=== PATIENT | female | born 1990 | race Caucasian/White ===

== ENCOUNTER 2019-09-25 18:21 | Emergency (ER) | payer OTHER ==
[2019-09-25] MEDS ORDERED: Zofran 4 MG/2 ML VIAL IV ONE (20:37)
[2019-09-25] MEDS ORDERED: Sodium Chloride 0.9% 1000 ML 1,000 ML IV STA (20:37)
[2019-09-25 20:44] LABS: INFLUENZA A NEGATIVE (NEGATIVE); INFLUENZA B NEGATIVE (NEGATIVE); RESPIRATORY SYNCTIAL VIRUS NEGATIVE (Negative)
[2019-09-25 20:47] LABS: Absolute Neutrophil Ct (ANC) 6.56 (1.4-6.9); BASOPHIL % 0.2 % (0.0-0.4); Basophil (Absolute #) 0.02 (0-0.4); Eosinophil % 0.4 % (0.00-5.0); Eosinophil (Absolute #) 0.04 (0-0.5); Hematocrit 38.3 % (35-47); Hemoglobin 13.1 gm/dl (12.0-16.0); Lymphocyte (Absolute #) 1.92 (1.0-4.6); Lymphocytes % 21.1 % (24.0-44.0); Mean Cell Volume 87.4 fl (78-100); Mean Corpuscular Hemoglobin 29.9 pg (26-32); Mean Corpuscular Hgb Concent. 34.2 g/dl (32-36); Mean Platelet Volume 10.2 fl (7.5-11.0); Monocyte (Absolute #) 0.55 (0.0-1.3); Monocytes % 6.1 % (0.0-12.0); Neutrophil % 72.2 % (36.0-66.0); Platelet Count 303 K/mm3 (150-450); Red Blood Count 4.38 M/mm3 (4.1-5.4); Red Cell Distribution Width 13.2 % (11.5-14.0); White Blood Count 9.1 K/mm3 (4.0-10.5)
[2019-09-25 20:52] LABS: ALBUMIN 4.4 g/dL (3.5-5.0); ALKALINE PHOSPHATASE 76 U/L (38-126); BLOOD UREA NITROGEN 7 mg/dL (7-17); CHLORIDE 102 mmol/L (98-107); Calcium 9.8 mg/dL (8.4-10.2); Carbon Dioxide 25 mmol/L (22-30); Creatinine 1 0.53 mg/dL (0.52-1.04); Glucose 99 mg/dL (74-106); LIPASE 126 U/L (23-300); Potassium 3.7 mmol/L (3.5-5.1); SGOT/AST 22 U/L (14-36); SGPT/ALT 19 U/L (0-35); SODIUM 138 mmol/L (137-145); Total Protein 8.2 g/dL (6.3-8.2)
[2019-09-25] MEDS ORDERED: Sodium Chloride 0.9% 1000 ML 1,000 ML ONE (21:02)
[2019-09-25] MEDS ORDERED: Zofran 4 MG/2 ML VIAL ONE (21:02)
[2019-09-25 21:36] LABS: Appearance SLIGHTLY CLOUDY (CLEAR); Bilirubin NEGATIVE (NEGATIVE); Blood NEGATIVE Ery/ul (0-5); Epithelial Cells RARE /HPF (FEW); Glucose NEGATIVE (NEGATIVE); Ketones SMALL (NEGATIVE); Leukocyte Esterase NEGATIVE (NEGATIVE); Mucus SLIGHT /HPF (NEGATIVE); Nitrite NEGATIVE (NEGATIVE); Protein,Urine Dip 30 (Negative); Specific Gravity 1.027 (1.005-1.025); Urobilinogen 4 mg/dL (0-1)
[2019-09-25] MEDS ORDERED: Phenergan 25 MG INJ IV ONE (21:50)
--- NOTE | 2019-09-25 21:50 | ERPHSYRPT ---
- History of Present Illness Time Seen by Provider: 09/25/19 19:43 Source: patient Patient Subjective Stated Complaint: pt states, "I'm 12 weeks and have been sick since 5 weeks . At 6 weeks, I started taking zofran, but I cannot keep anything down the last couple days". Triage Nursing Assessment: pt c/o nausea and vomiting x7 weeks of , is taking zofran but the last 2 days unable to keep anything down, food or fluids. The nausea and vomiting has gotten worse the last 2 days. Fever 99.6 today. Physician History: 29 yyears old 3 para 1 at 12 weeks gestation presented in the ER with chief complaint worsening hyperemesis gravidarum. Patient reports for the last 6 weeks he is not been able to hold much down and for the last couple of days it 's been worse than usual. Usually she has 3-4 episodes of vomiting every day but today alone she has 5 or 6. She denies any abdominal pain, vaginal bleeding or discharge. Denies any hematemesis. Vomiting is triggered by oral intake and stays nauseated off her words. She has been taking Zofran with not much relief. She feels fatigued and tired. Timing/Duration: week(s), intermittent, worse Activites at Onset: rest Allergies/Adverse Reactions: No Known Drug Allergies Allergy (Unverified 06/23/16 20:25) Home Medications: Ondansetron HCl [Zofran] 4 mg PO Q6H PRN PRN 09/25/19 [History] Hx Tetanus, Diphtheria Vaccination/Date Given: Yes Hx Influenza Vaccination/Date Given: No Hx Pneumococcal Vaccination/Date Given: No - Review of Systems Constitutional: Fatigue Eyes: No Symptoms Ears, Nose, & Throat: No Symptoms Respiratory: No Symptoms Cardiac: No Symptoms Abdominal/Gastrointestinal: Nausea, Vomiting Genitourinary Symptoms: No Symptoms Musculoskeletal: No Symptoms Neurological: No Symptoms Psychological: No Symptoms Endocrine: No Symptoms Hematologic/Lymphatic: No Symptoms - Past Medical History Pertinent Past Medical History: Yes Neurological History: No Pertinent History ENT History: No Pertinent History Cardiac History: No Pertinent History Respiratory History: No Pertinent History Endocrine Medical History: Hypothyroidism Musculoskeletal History: No Pertinent History GI Medical History: Colitis, Irritable Bowel History: No Pertinent History Psycho-Social History: Anxiety, Depression, Panic Disorder Female Reproductive Disorders: Other Other Medical History: pcos, miscarriage 2013 - Past Surgical History Past Surgical History: Yes Neuro Surgical History: No Pertinent History Cardiac: No Pertinent History Respiratory: No Pertinent History Gastrointestinal: No Pertinent History Genitourinary: No Pertinent History Musculoskeletal: No Pertinent History Female Surgical History: Dilation & Curettage, Section - Social History Smoking Status: Never smoker Exposure to second hand smoke: No Drug Use: none Patient Lives Alone: No - Female History Hx Now: Yes Expected Date of Delivery: 04/06/20 - Nursing Vital Signs Nursing Vital Signs: Initial Vital Signs Temperature 99.6 F 09/25/19 19:22 Pulse Rate 110 H 09/25/19 19:22 Respiratory Rate 09/25/19 19:22 Blood Pressure 127/74 09/25/19 19:22 O2 Sat by Pulse Oximetry 100 09/25/19 19:22 Pain Scale Pain Intensity 0 - Physical Exam General Appearance: no apparent distress Eye Exam: eyes nml inspection Ears, Nose, Throat Exam: normal ENT inspection, TMs normal Neck Exam: normal inspection, non-tender, supple Respiratory Exam: normal breath sounds, lungs clear Cardiovascular Exam: regular rate/rhythm, normal heart sounds, normal peripheral pulses Gastrointestinal/Abdomen Exam: soft, normal bowel sounds, No tenderness, No distention Back Exam: normal inspection Extremity Exam: normal inspection, normal range of motion Neurologic Exam: alert, oriented x 3, cooperative, 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 Skin Exam: normal color SpO2 Interpretation: normal SpO2: 99 O2 Delivery: Room Air - Course Nursing assessment & vital signs reviewed: Yes Ordered Tests: Active Orders 24 hr Category Date Time Status IV Insertion STAT Care 09/25/19 20:37 Active CBC W DIFF Stat Lab 09/25/19 20:10 Completed CMP Stat Lab 09/25/19 20:10 Completed LIPASE Stat Lab 09/25/19 20:10 Completed UA W/RFX UR CULTURE Stat Lab 09/25/19 21:29 Completed Medication Summary Discontinued Medications Generic Name Dose Route Start Last Admin Trade Name Freq PRN Reason Stop Dose Admin Sodium Chloride 1,000 mls @ 999 mls/hr 09/25/19 20:37 09/25/19 21:05 Sodium Chloride 0.9% 1000 Ml IV 09/25/19 21:37 999 mls/hr .Q1H1M STA Administration Sodium Chloride Confirm 01/24/20 21:02 Sodium Chloride 0.9% 1000 Ml Administered 09/25/19 21:03 Dose 1,000 mls @ ud .ROUTE .[facility] Ondansetron HCl 4 mg 09/25/19 20:37 09/25/19 21:05 Zofran 4 Mg/2 Ml Vial IV 09/25/19 20:38 4 mg STAT ONE Administration Ondansetron HCl Confirm 09/25/19 21:02 Zofran 4 Mg/2 Ml Vial Administered 09/25/19 21:03 Dose 4 mg .ROUTE .[facility] Lab/Rad Data: Laboratory Result Diagrams 09/25/19 20:10 09/25/19 20:10 Laboratory Results 09/25/19 09/25/19 09/25/19 Range/Units 21:29 20:10 20:10 WBC 9.1 (4.0-10.5) K/mm3 RBC 4.38 (4.1-5.4) M/mm3 Hgb 13.1 (12.0-16.0) gm/dl Hct 38.3 (35-47) % MCV 87.4 (78-100) fl MCH 29.9 (26-32) pg MCHC 34.2 (32-36) g/dl RDW 13.2 (11.5-14.0) % Plt Count 303 (150-450) K/mm3 MPV 10.2 (7.5-11.0) fl Gran % 72.2 H (36.0-66.0) % Eos # (Auto) 0.04 (0-0.5) Absolute Lymphs (auto) 1.92 (1.0-4.6) Absolute Monos (auto) 0.55 (0.0-1.3) Lymphocytes % 21.1 L (24.0-44.0) % Monocytes % 6.1 (0.0-12.0) % Eosinophils % 0.4 (0.00-5.0) % Basophils % 0.2 (0.0-0.4) % Absolute Granulocytes 6.56 (1.4-6.9) Basophils # 0.02 (0-0.4) Sodium 138 (137-145) mmol/L Potassium 3.7 (3.5-5.1) mmol/L Chloride 102 (98-107) mmol/L Carbon Dioxide 25 (22-30) mmol/L Anion Gap 15.0 (5-15) MEQ/L BUN 7 (7-17) mg/dL Creatinine 0.53 (0.52-1.04) mg/dL Estimated GFR > 60.0 ML/MIN Glucose 99 (74-106) mg/dL Calcium 9.8 (8.4-10.2) mg/dL Total Bilirubin 0.40 (0.2-1.3) mg/dL AST 22 (14-36) U/L ALT 19 (0-35) U/L Alkaline Phosphatase 76 (38-126) U/L Serum Total Protein 8.2 (6.3-8.2) g/dL Albumin 4.4 (3.5-5.0) g/dL Lipase 126 (23-300) U/L Urine Color SERA (YELLOW) Urine Appearance SLIGHTLY CLOUDY (CLEAR) Urine pH 5.0 (5-6) Ur Specific [place] 1.027 (1.005-1.025) Urine Protein 30 (Negative) Urine Ketones SMALL (NEGATIVE) Urine Blood NEGATIVE (0-5) [place]/ul Urine Nitrite NEGATIVE (NEGATIVE) Urine Bilirubin NEGATIVE (NEGATIVE) Urine Urobilinogen 4 (0-1) mg/dL Ur Leukocyte Esterase NEGATIVE (NEGATIVE) Urine WBC (Auto) 3-5 (0-5) /HPF Urine RBC (Auto) NONE (0-2) /HPF U Epithel Cells (Auto) RARE (FEW) /HPF Urine Bacteria (Auto) NONE (NEGATIVE) /HPF Urine Mucus (Auto) SLIGHT (NEGATIVE) /HPF Urine Culture Reflexed NO (NO) Urine Glucose NEGATIVE (NEGATIVE) mg/dL Influenza Type A Ag (NEGATIVE) Influenza Type B Ag (NEGATIVE) RSV (PCR) (Negative) 09/25/19 Range/Units 20:07 WBC (4.0-10.5) K/mm3 RBC (4.1-5.4) M/mm3 Hgb (12.0-16.0) gm/dl Hct (35-47) % MCV (78-100) fl MCH (26-32) pg MCHC (32-36) g/dl RDW (11.5-14.0) % Plt Count (150-450) K/mm3 MPV (7.5-11.0) fl Gran % (36.0-66.0) % Eos # (Auto) (0-0.5) Absolute Lymphs (auto) (1.0-4.6) Absolute Monos (auto) (0.0-1.3) Lymphocytes % (24.0-44.0) % Monocytes % (0.0-12.0) % Eosinophils % (0.00-5.0) % Basophils % (0.0-0.4) % Absolute Granulocytes (1.4-6.9) Basophils # (0-0.4) Sodium (137-145) mmol/L Potassium (3.5-5.1) mmol/L Chloride (98-107) mmol/L Carbon Dioxide (22-30) mmol/L Anion Gap (5-15) MEQ/L BUN (7-17) mg/dL Creatinine (0.52-1.04) mg/dL Estimated GFR ML/MIN Glucose (74-106) mg/dL Calcium (8.4-10.2) mg/dL Total Bilirubin (0.2-1.3) mg/dL AST (14-36) U/L ALT (0-35) U/L Alkaline Phosphatase (38-126) U/L Serum Total Protein (6.3-8.2) g/dL Albumin (3.5-5.0) g/dL Lipase (23-300) U/L Urine Color (YELLOW) Urine Appearance (CLEAR) Urine pH (5-6) Ur Specific [place] (1.005-1.025) Urine Protein (Negative) Urine Ketones (NEGATIVE) Urine Blood (0-5) Kenyon/ul Urine Nitrite (NEGATIVE) Urine Bilirubin (NEGATIVE) Urine Urobilinogen (0-1) mg/dL Ur Leukocyte Esterase (NEGATIVE) Urine WBC (Auto) (0-5) /HPF Urine RBC (Auto) (0-2) /HPF U Epithel Cells (Auto) (FEW) /HPF Urine Bacteria (Auto) (NEGATIVE) /HPF Urine Mucus (Auto) (NEGATIVE) /HPF Urine Culture Reflexed (NO) Urine Glucose (NEGATIVE) mg/dL Influenza Type A Ag NEGATIVE (NEGATIVE) Influenza Type B Ag NEGATIVE (NEGATIVE) RSV (PCR) NEGATIVE (Negative) - Progress Progress: re-examined Air Movement: good Progress Note: sshe is given IV fluids and Zofran, and reevaluation feeling much better. No vomiting while in the ER. I will give her Phenergan prescription to take as needed. Recommended increase hydration and outpatient follow up with her OB. She does not have any abdominal pain//vaginal bleeding or discharge. Do not think needs any further workup is stable for discharge. 09/25/19 21:52 Blood Culture(s) Obtained: No Antibiotics given: No Counseled pt/family regarding: lab results, diagnosis, need for follow-up - Departure Departure Disposition: Home Clinical Impression: Hyperemesis affecting , antepartum Condition: Stable Critical Care Time: No Referrals: PRASHANT PENA MD [Primary Care Provider] - Instructions: Hyperemesis Gravidarum Additional Instructions: Drink plenty of fluids. Take Zofran/Phenergan as needed. Followup will be for evacuation of next week. Return to ER for worsening vomiting, dehydration, vaginal bleeding, abdominal pain etc.
[2019-09-25] MEDS ORDERED: Phenergan 25 MG INJ ONE (21:53)
[2019-09-25 22:07] VITALS: O2SAT 98
[2019-09-25 22:27] VITALS: BP 119/56; PULSE 91
== END 2019-09-25 22:28 | disposition home or self-care (01) ==
LOC: ED 18:21
DX: O21.0 Mild hyperemesis gravidarum (principal); Z3A.12 12 weeks gestation of pregnancy
CPT/HCPCS: 36000; 36415; 80053; 81001; 83690; 85025; 87631; 96374; 96375; 99284; J2405; J2550

== ENCOUNTER 2024-03-03 10:45 | Emergency (ER) | payer OTHER ==
[2024-03-03 10:58] VITALS: RESP 18; TEMP 97.1
--- NOTE | 2024-03-03 11:10 | ERPHSYRPT ---
- History of Present Illness Time Seen by Provider: 03/03/24 11:06 Source: patient, tube roller Physician History: 33-year-old female with a history of chronic back pain presents to our ED with acute exacerbation. Patient states the characteristics of her back pain are typical however the intensity is worse. Patient last had an imaging study when she was 19 years old. Patient was told that her C5 and C6 were unfused causing pain. Per the orthopedic surgeon at that time she was not a candidate for surgery. Pain described as an ache that tends to radiate down into her legs which is typical of her back pain exacerbation. No change in bowel bladder function. No saddle anesthesia. No fever no recent back procedure. No associated symptoms. Patient denies the possibility of . Patient states she had a tubal ligation and her is fixed. She does not have any urinary symptomology. Patient voices no other complaints or concerns at this time. Portions of this note were created with voice recognition technology. There may be grammatical, spelling, punctuation or sound alike errors Timing/Duration: today Method of Injury: twisted (Twisting in bed) Quality: dull, radiating (Radiates to both legs) Back Pain Location: lumbar spine Back Pain Radiation: lower legs Severity of Pain-Max: moderate Severity of Pain-Current: moderate Modifying Factors: Improves With: movement Associated Symptoms: denies symptoms Previous symptoms: same symptoms as today Allergies/Adverse Reactions: No Known Drug Allergies Allergy (Verified 03/03/24 10:58) Home Medications: Dextroamphetamine/Amphetamine [Dextroamp-Amphet ER 20 mg Cap] 1 ea DAILY 03/03/24 [History] Semaglutide [Ozempic] 1 mg SQ UD 03/03/24 [History] Spironolactone 25 mg [Aldactone 25 MG] 25 mg PO DAILY 03/03/24 [History] Hx Tetanus, Diphtheria Vaccination/Date Given: Yes Hx Influenza Vaccination/Date Given: No Hx Pneumococcal Vaccination/Date Given: No - Review of Systems Constitutional: No Symptoms, No Fever, No Chills Eyes: No Symptoms Ears, Nose, & Throat: No Symptoms Respiratory: No Symptoms, No Cough, No Dyspnea Cardiac: No Symptoms, No Chest Pain, No Edema, No Syncope Abdominal/Gastrointestinal: No Symptoms, No Abdominal Pain, No Nausea, No Vomiting, No Diarrhea Genitourinary Symptoms: No Symptoms, No Dysuria Musculoskeletal: No Symptoms, No Back Pain, No Neck Pain Skin: No Symptoms, No Rash Neurological: No Symptoms, No Dizziness, No Focal Weakness, No Sensory Changes Psychological: No Symptoms Endocrine: No Symptoms Hematologic/Lymphatic: No Symptoms Immunological/Allergic: No Symptoms All Other Systems: Reviewed and Negative - Past Medical History Pertinent Past Medical History: Yes Neurological History: No Pertinent History ENT History: No Pertinent History Cardiac History: No Pertinent History Respiratory History: No Pertinent History Endocrine Medical History: Hypothyroidism Musculoskeletal History: Other GI Medical History: Colitis, Irritable Bowel History: No Pertinent History Psycho-Social History: Anxiety, Depression, Panic Disorder Female Reproductive Disorders: Other Other Medical History: pcos, miscarriage 2014,chronic back pain - Past Surgical History Past Surgical History: Yes Neuro Surgical History: No Pertinent History Cardiac: No Pertinent History Respiratory: No Pertinent History Gastrointestinal: No Pertinent History Genitourinary: No Pertinent History Musculoskeletal: No Pertinent History Female Surgical History: Dilation & Curettage, Section - Female History Hx Now: No - Social History Smoking Status: Never smoker Exposure to second hand smoke: No Drug Use: none Patient Lives Alone: No - Nursing Vital Signs Nursing Vital Signs: Initial Vital Signs Temperature 97.1 F 03/03/24 10:57 Pulse Rate 70 03/03/24 10:57 Respiratory Rate 18 03/03/24 10:57 Blood Pressure 131/74 03/03/24 10:57 O2 Sat by Pulse Oximetry 98 03/03/24 10:57 Pain Scale Pain Intensity [Back] 5 Pain Intensity 5 - Physical Exam General Appearance: no apparent distress, alert Eye Exam: PERRL/EOMI, eyes nml inspection Neck Exam: normal inspection, non-tender, supple, full range of motion, No meningismus, No midline tenderness Respiratory Exam: normal breath sounds, lungs clear, airway intact, No respiratory distress Cardiovascular Exam: regular rate/rhythm, normal heart sounds, normal peripheral pulses Gastrointestinal Exam: soft, No tenderness, No mass Extremity Exam: normal inspection, normal range of motion, No calf tenderness, No pedal edema Neurologic Exam: alert, oriented x 3, cooperative, 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, normal mood/affect, nml station & gait, sensation nml, No motor deficits Skin Exam: normal color, warm, dry, No rash Lymphatic Exam: No adenopathy SpO2 Interpretation: normal SpO2: 98 O2 Delivery: Room Air - Course Nursing assessment & vital signs reviewed: Yes - CT Exams Lumbar Spine CT Interpretation: Tele-radiologist Report (Disc bulge some degenerative arthritis of the lumbar spine) Ordered Tests: Active Orders 24 hr Category Date Time Status LUMBAR SPINE W/O [CT] Stat Exams 03/03/24 11:05 Completed Medication Summary Discontinued Medications Generic Name Dose Route Start Last Admin Trade Name Anamaria PRN Reason Stop Dose Admin Dexamethasone Sodium Phosphate 10 mg 03/03/24 11:04 03/03/24 11:23 Dexamethasone Sod Phosphate 10 Mg/Ml IM 03/03/24 11:05 10 mg STAT ONE Administration Dexamethasone Sodium Phosphate Confirm 03/03/24 11:20 Dexamethasone Sod Phosphate 10 Mg/Ml Administered 03/03/24 11:21 Dose 10 mg .ROUTE .[facility] ONE Ketorolac Tromethamine 60 mg 03/03/24 11:04 03/03/24 11:23 Ketorolac Tromethamine 30 Mg/Ml Inj IM 03/03/24 11:05 60 mg STAT ONE Administration Ketorolac Tromethamine Confirm 03/03/24 11:20 Ketorolac Tromethamine 30 Mg/Ml Inj Administered 03/03/24 11:21 Dose 60 mg .ROUTE .STK-[facility] ONE - Progress Progress: improved Progress Note: 33-year-old female presents emergency department for evaluation of acute on chronic low back pain. Physical exam reveals some pain along the lumbar spine. Pain worse with movement and palpation pain improved with rest. CT scan reveals L4-S1 disc bulge. Some degeneration observed as well. Otherwise no acute findings no fracture dislocations. Patient received Toradol and Decadron. Pain improved. Patient states he is ready for discharge. Will discharge home. Patient agrees to follow-up with her primary care doctor within 48 hours for evaluation. Portions of this note were created with voice recognition technology. There may be grammatical, spelling, punctuation or sound alike errors Complexity problem addressed is moderate acute complicated. No critical care time. Complexity of data reviewed and analyzed is moderate. Test ordered test reviewed results analyzed and correlated clinically with history and physical examination. Risk of complication and or risk morbidity/mortality patient management is low. Vital stable. Time spent to discharge patient approximately 20 minutes. Plan of care established for shared decision making. No social determinants of health present impede follow-up. Portions of this note were created with voice recognition technology. There may be grammatical, spelling, punctuation or sound alike errors 03/03/24 12:04 Counseled pt/family regarding: diagnosis, need for follow-up, rad results - Departure Departure Disposition: Home Clinical Impression: Bulging disc, Lumbosacral strain, Back pain Condition: Stable Critical Care Time: No Referrals: DAVID BALDWIN PA [Primary Care Provider] - Follow up/PCP as directed Additional Instructions: Discharge/Care Plan JOSI PEDRO was seen on 03/03/24 in the Emergency Room. The patient was counseled regarding Diagnosis,Lab results, Imaging studies, need for follow up and when to return to the Emergency Room. Prescriptions given: Discharge Note I have spoken with the patient and/or caregivers. I have explained the patient's condition, diagnosis and treatment plan based on the information available to me at this time. I have answered the patient's and/or caregiver's questions and addressed any concerns. The patient and/or caregivers have as good understanding of the patient's diagnosis, condition and treatment plan as can be expected at this point. The vital signs have been stable. The patient's condition is stable and appropriate for discharge from the emergency department. The patient will pursue further outpatient evaluation with the primary care physician or other designated or consulting physician as outlined in the discharge instructions. The patient and/or caregivers are agreeable to this plan of care and follow-up instructions have been explained in detail. The patient a nd/or caregivers have received these instruction. The patient/and or caregivers are aware that any significant change in condition or worsening of symptoms should prompt an immediate return to this or the closest emergency department or call 911.
[2024-03-03] MEDS ORDERED: TORAdol 30 mg Injection ONE (11:20)
[2024-03-03] MEDS ORDERED: DECADRON 10MG INJ. ONE (11:20)
[2024-03-03] MEDS: TORAdol 30 mg Injection IM ONE (11:23)
[2024-03-03] MEDS: DECADRON 10MG INJ. IM ONE (11:23)
--- NOTE | 2024-03-03 11:56 | XRAY ---
Indication: Low back pain. No known injury. Multiple contiguous axial images obtained through the lumbar spine. Sagittal and coronal reformatted images obtained. Comparison: None Minimal broad-based disc bulge at L4-S1 levels. No acute fracture, suspicious bony lesions, large disc herniation, or spinal canal stenosis. Facets are symmetric. Sagittal and coronal reformatted images emesis normal alignment with minimal L4-S1 disc space narrowing. No acute compression fracture sublocation. Visualized noncontrasted soft tissues are unremarkable. Impression: Minimal L4-S1 degenerative disc bulge better evaluated with outpatient MRI if clinically warranted. Remaining CT lumbar spine is normal.
[2024-03-03 12:02] VITALS: O2SAT 98
[2024-03-03 12:10] VITALS: BP 136/53; PULSE 60
== END 2024-03-03 12:14 | disposition home or self-care (01) ==
LOC: ED 10:45
DX: M51.37 Other intervertebral disc degeneration, lumbosacral region (principal); S39.012A Strain of muscle, fascia and tendon of lower back, initial encounter; M54.9 Dorsalgia, unspecified; Z79.85 Long-term (current) use of injectable non-insulin antidiabetic drugs; Z79.899 Other long term (current) drug therapy
CPT/HCPCS: 72131; 96372; 99283; J1100; J1885